=== PATIENT | female | born 1960 | race African-American/Black ===

== ENCOUNTER 2019-01-04 03:49 | Emergency (ER) | payer MEDICAID ==
[~2019-01-04] VITALS: Ht 170.2 cm; Wt 59.0 kg
[2019-01-04 04:16] VITALS: BP 164/72
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
[2019-01-04] MEDS ORDERED: IBUPROFEN600 MG ORAL (04:52)
[2019-01-04 05:13] VITALS: BP 164/72
== END 2019-01-04 05:15 | disposition home or self-care (01) ==
LOC: EMR 04:19
DX: R51 Headache (principal)
CPT/HCPCS: 99281